=== PATIENT | male | born 1975 | race Two or more races ===

== ENCOUNTER 2017-02-11 06:24 | Day surgery (SDC) | payer OTHER ==
[~2017-02-11 06:24] MED LIST: Buffered Lidocaine 0.9% SYRIN* 5 ML/SYR SYRINGE INTRADERM ONE
[2017-02-11] MEDS ORDERED: ceFAZolin 2 GM PREMIX (*) 2 GM/50 ML BAG IVPB ONE (06:51)
[2017-02-11] MEDS ORDERED: Buffered Lidocaine 0.9% SYRIN* 5 ML/SYR SYRINGE ONE (06:51)
[2017-02-11] MEDS ORDERED: EPINEPHrine AMP 1 MG/ML ONE (07:08)
[2017-02-11] MEDS ORDERED: Bupivacaine 0.5% SDV PF* 30 ML VIAL ONE (07:08)
[2017-02-11] MEDS ORDERED: Hydrocortisone INJ* 100 MG VIAL ONE (07:38)
[2017-02-11] MEDS ORDERED: Midazolam* 1 MG/ML 2 ML VIAL (2 MG) ONE (07:44)
[2017-02-11] MEDS ORDERED: fentaNYL* 50 MCG/ML 2 ML VIAL (100 MCG VIAL) ONE ×2 (07:44→08:19)
[2017-02-11] MEDS ORDERED: Propofol* 10 MG/ML 20 ML BTL IV PUSH ONE (08:06)
[2017-02-11] MEDS ORDERED: Ondansetron INJ* 2 MG/ML VIAL ONE (08:06)
[2017-02-11] MEDS ORDERED: Lidocaine 2% PF * 5 ML VIAL ONE (08:06)
[2017-02-11] MEDS ORDERED: Dexamethasone IV* 4 MG/ML 1 ML (4 MG) ONE (08:06)
[2017-02-11] MEDS ORDERED: methylPREDNISolone ACETATE 40* 40 MG/ML 1 ML VIAL ONE (08:39)
[2017-02-11] MEDS ORDERED: Ketorolac INJ* 30 MG/ML 1 ML VIAL ONE (08:49)
[2017-02-11] MEDS ORDERED: Glycopyrrolate IV* 0.2 MG/ML 1 ML VIAL ONE (08:59)
[2017-02-11] MEDS ORDERED: Sevoflurane* 1 BTL ONE (09:03)
[2017-02-11] MEDS ORDERED: Acetaminophen TAB* 325 MG PO PRN (09:13)
[2017-02-11] MEDS ORDERED: oxyCODONE/Acetamin 5/325 MG* TAB ONE ×2 (09:37→10:25)
[2017-02-11] MEDS ORDERED: HYDROmorphone INJ* 1 MG/ML CARPUJECT SYRINGE ONE (09:56)
[2017-02-11] MEDS: HYDROmorphone INJ* 1 MG/ML CARPUJECT SYRINGE IV PRN ×2 (09:57→10:27)
[2017-02-11 10:38] VITALS: BP 115/77
--- NOTE | 2017-02-11 13:24 | OP ---
DATE OF OPERATION: 02/11/17 - [facility] DATE OF : 75 SURGEON: Efra Galo MD. COMPUTERIZED MILL MILL RECORDER: BHAKTI Giron. A physician corporate administrative assistant was required for the length of the procedure for knee manipulation and help with instrumentation. ANESTHESIOLOGIST: Dr. Montelongo. ANESTHESIA: General anesthesia, local anesthesia, 4 cc of 0.5% Marcaine, left knee,subcutaneous tissues. PRE-OP DIAGNOSES: 1. Left knee medial meniscus tear. 2. Right knee pain and possible right knee medial meniscus tear. POST-OP DIAGNOSES: 1. Left knee medial meniscus tear. 2. Left knee medial compartment osteoarthritis. 3. Left knee anterior synovitis. 4. Right knee pain and possible right knee medial meniscus tear. OPERATIVE PROCEDURE: 1. Left knee arthroscopic partial medial meniscectomy. 2. Left knee arthroscopic anterior synovectomy. 3. Left knee arthroscopic chondroplasty medial femoral condyle. 4. Right knee cortisone injection, intraarticular. IV FLUIDS: 700 cc crystalloid. ANTIBIOSIS: Ancef 2 g IV. TOURNIQUET TIME: 18 minutes at 300 mmHg, left lower extremity. ESTIMATED BLOOD LOSS: Minimal. COMPLICATIONS: None. SPECIMEN: None. INJECTION: Right knee Depo-Medrol, 3 cc of Depo-Medrol at a concentration of 40 mg/cc. 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 See my history and physical for complete history. The patient responded insufficiently to nonoperative management and opted for surgery. We discussed the risks and potential complications of surgery including bleeding , infection, nerve or blood vessel injury, knee pain, stiffness, arthritis, blood clot. We discussed the possibility albeit remote of a meniscal repair and the postoperative rehabilitation required of that. DESCRIPTION OF PROCEDURE: Preoperative written consent was obtained in the preoperative holding. Operative extremities marked in preoperative holding. I marked the left knee with my initials. I marked the right knee with my initials as well as the letters INJ to demark that this would be the knee where the injection would be performed. The patient was brought back to the operating room and placed supine on the operating room table. The patient was sedated and LMA was placed. A tourniquet was placed about the proximal left thigh. The distal left thigh was placed in a circumferential thigh sheets. The table was elevated and the foot of the table was dropped. The left lower extremity was prepped with ChloraPrep and then draped. Bumps of blanket had been placed under the left hemipelvis. The surgical time-out was performed. Left knee anterolateral knee arthroscopy portal was established using standard technique. Diagnostic arthroscopy was commenced. No unstable articular cartilage lesions in the patellofemoral compartment. There was some synovitis and some fat noted to infiltrate into the patellofemoral compartment from anterior. I next moved down to the medial compartment. I took a number of pictures initially of some wear, partial thickness, in the medial compartment, both at the medial aspect of the medial femoral condyle and the medial aspect of the medial tibial plateau. We described these as grade 2 or possibly grade 3 changes. Immediately visible was a meniscus tear, with some clear shredding of the meniscus, inferior aspect of the base of the medial meniscus. There was clearly a parrot- beak tear present. I established an anteromedial knee arthroscopy portal using direct visualization. I entered an arthroscopic shaver and very carefully shaved a millimeter or less of some unstable articular cartilage about the medial femoral condyle on the lateral or central aspect, and of a partial-thickness articular cartilage lesion. I then entered my probe and probed the meniscus. I took some photographs of the parrot-beak shaped tear displaced, prolapsed into the center of the medial compartment. I next debrided the medial meniscus back to a stable rim, working from anteromedial and then working from anterolateral. I used an arthroscopic shaver as well as a meniscus bucket biter. I debrided the meniscus back to a stable rim. I confirmed the stability with a arthroscopic probe. I looked into the intracondylar notch where the ACL was intact. I debrided some ligamentum mucosum and anterior synovitis, a minimal amount. I visualized the lateral compartment and there was no articular cartilage or meniscus damage in that compartment. I returned to the patellofemoral compartment where I debrided just a small amount of synovitis and fat that was prolapsing into the compartment itself. I removed instruments and fluids from the left knee. The skin incisions were closed with [id number] and twelve stitches using nylon 4-0 suture. 0.5% Marcaine, local anesthetic was infused into the subcutaneous tissue about the surgical incisions. Tourniquet was dropped. Dressing of Xeroform, followed by 4x4's, followed by sterile Webril, followed by NISA bandage from ankle to proximal thigh were placed. Cooling unit was applied. I injected 3 cc of Depo-Medrol, 40 mg/mL into the right knee using an anteromedial approach, after prepping the site with ChloraPrep. I placed a Band -Aid over that injection site. The patient was awakened and extubated and brought to the PACU. DISPOSITION: The patient will follow discharge instructions per our sheet. Percocet as needed for pain. Keflex x3 days for infection prophylaxis. Dressing intact for 3 days and then change daily for 7 days. Crutches as needed , weight-bearing as tolerated. Follow up in clinic in 10 to 14 days postoperative. [id number] #: [id number] MTDD
== END 2017-02-11 10:59 | disposition home or self-care (01) ==
LOC: OR 06:24
PROVIDERS: ATTEND Orthopaedic Surgery
DX: M23.332 Other meniscus derangements, other medial meniscus, left knee (principal); M17.12 Unilateral primary osteoarthritis, left knee; M65.862 Other synovitis and tenosynovitis, left lower leg; M25.561 Pain in right knee; R94.31 Abnormal electrocardiogram [ECG] [EKG]
CPT/HCPCS: A9270-GY; J0171; J0690; J1030; J1100; J1170; J1720; J1885; J2250; J2405; J2704; J3010